=== PATIENT | female | born 1990 | race Caucasian/White ===

== ENCOUNTER 2019-01-16 15:45 | Inpatient (IN) | payer OTHER ==
[~2019-01-16] VITALS: Ht 160 cm; Wt 80.6 kg
[2019-01-16 16:11] VITALS: Ht 160 cm; Wt 80.6 kg
[2019-01-16 16:13] VITALS: BP 121/62; PULSE 90; RESP 20
[2019-01-16] MEDS ORDERED: CARBOPROST 250 MCG INJ IM PRN (16:30)
[2019-01-16] MEDS ORDERED: MISOPROSTOL 200 MCG TAB PR PRN (16:30)
[2019-01-16] MEDS ORDERED: LIDOCAINE 1% (MPF) 30 ML INJ INJ PRN (16:30)
[2019-01-16] MEDS ORDERED: OXYTOCIN 30 UNITS/LR 500 ML IV PRN (16:30)
[2019-01-16] MEDS ORDERED: METHYLERGONOVINE 0.2 MG INJ IM PRN (16:30)
[2019-01-16] MEDS ORDERED: OXYTOCIN 30 UNITS/LR 500 ML IV SCH ×2 (16:30)
[2019-01-16] MEDS ORDERED: LACTATED RINGER'S 1,000 ML IV PRN (16:46)
[2019-01-16] MEDS ORDERED: LACTATED RINGER'S 1,000 ML IV SCH (16:46)
[2019-01-16] MEDS ORDERED: AMPICILLIN 2 GM/NS (PMX) 100 ML ONE (16:53)
[2019-01-16] MEDS ORDERED: BUTORPHANOL 2 MG INJ IV PRN (17:00)
[2019-01-16] MEDS ORDERED: AMPICILLIN 2 GM/NS (PMX) 100 ML IV ONE (17:00)
[2019-01-16] MEDS ORDERED: IBUPROFEN 600 MG TAB PO PRN (17:00)
[2019-01-16] MEDS: MISOPROSTOL 50 MCG CAPSULE PO SCH ×2 (18:37→23:35)
[2019-01-16] MEDS ORDERED: AMPICILLIN 1 GM/NS (PMX) 50 ML IV SCH ×2 (20:30→21:00)
[2019-01-17] MEDS ORDERED: LIDOCAINE 1.5%/EPI MPF (SDV) 30 ML VIAL ONE
--- NOTE | 2019-01-17 00:14 | PREAC ---
Date/Time of Note Date/Time of Note DATE: 01/17/19 TIME: 00:13 Anesthesia Eval and Record Evaluation Time Pre-Procedure Interview DATE: 01/17/19 TIME: 00:13 Age 28 Sex female NPO: 8 hrs Preoperative diagnosis intrauterine Planned procedure labor epidural Past Medical History Past Medical History: Includes : : (5), Para: (4), Gestational age: (41+) Surgery & Anesthesia Issues No known issue Meds Anticoagulation: No Beta Sharona within 24 hr: No Reason Beta Sharona not given: Pt. not on B-Sharona Current Medications Lidocaine (Xylocaine 1% (Mpf)) 30 ml ONCE PRN INJ .EPISIOTOMY; Start 01/16/19 at 16:30 Oxytocin/Lactated Ringer's 500 ml @ 500 mls/hr ONCE POST IV ; Start 01/16/19 at 16:30 Oxytocin/Lactated Ringer's 500 ml @ 125 mls/hr POST IV ; Start 01/16/19 at 16:30 Oxytocin/Lactated Ringer's 500 ml @ 0 mls/hr ONCE PRN IV .VAGINAL BLEEDING; Start 01/16/19 at 16:30 Methylergonovine Maleate (Methergine) 0.2 mg ONCE PRN IM .VAGINAL BLEEDING; Start 01/16/19 at 16:30 Carboprost Tromethamine (Hemabate) 250 mcg ONCE PRN IM .VAGINAL BLEEDING; Start 01/16/19 at 16:30 Misoprostol (Cytotec) 1,000 mcg ONCE PRN UT .VAGINAL BLEEDING; Start 01/16/19 at 16:30 Lactated Ringer's 1,000 ml @ 125 mls/hr Q8H IV Last administered on 01/16/19at 17:00; Admin Dose 125 MLS/HR; Start 01/16/19 at 16:46 Butorphanol Tartrate (Stadol) 2 mg Q2H PRN IV .PAIN SCALE 6-10; Start 01/16/19 at 17:00 Lactated Ringer's 1,000 ml @ 2,000 mls/hr Q30M PRN IV .ANESTHESIA; Start 01/16/19 at 16:46 Ibuprofen (Motrin) 600 mg ONCE PRN PO .PAIN 1-5; Start 01/16/19 at 17:00 Misoprostol (Cytotec 50 Mcg Capsule) 50 mcg Q4H PO Last administered on 01/16/19at 23:35; Admin Dose 50 MCG; Start 01/16/19 at 18:30; Stop 01/17/19 at 14:31 Ampicillin 50 ml @ 100 mls/hr Q4H IV Last administered on 01/16/19at 21:11; Admin Dose 100 MLS/HR; Start 01/16/19 at 21:00 Meds reviewed: Yes Allergies Coded Allergies: No Known Allergy (Unverified , 01/16/19) Allergies Reviewed: Yes Labs/Studies Labs Reviewed: Reviewed by anesthesiologist Result Diagram: 01/16/19 1627 Laboratory Tests 01/16/19 16:27 Blood Bank Test 01/16/19 16:27 Antibody Screen NEGATIVE Blood Type O POSITIVE Rh Immune Globulin Candidate NO test: N/A Pre-procedure Exam Last vitals Vital Signs Date Temp Pulse Resp B/P (MAP) Pulse Ox O2 O2 Flow FiO2 Time Delivery Rate 01/16/19 98.2 90 20 121/62 97 Room Air 16:13 (81) Airway: Adequate mouth opening, Adequate thyromental dist Mallampati: Mallampati II Teeth: Normal Lung: Normal Heart: Normal ASA Physical Status ASA physical status: 2 Emergency: None Planned Anesthetic Neuraxial: Epidural Planned Pain Management Epidural, Parenteral pain med Pre-operative Attestations Prior to commencing anesthesia and surgery, the patient was re-evaluated, there was verification of: *The patient's identity *The results of appropriate recent lab work and preoperative vital signs *The above evaluation not changing prior to induction *Anesthetic plan, risk benefits, alternative and complications discussed with patient/family; questions answered; patient/family understands, accepts and wishes to proceed. NALDO MOTAT MD January 17, 2019 00:14
[2019-01-17] MEDS ORDERED: FENTAnyl 2MCG/ML-ROPIV 0.2% 0 ML ONE (00:16)
[2019-01-17] MEDS ORDERED: ONDANSETRON 4 MG INJ IV PRN (00:30)
[2019-01-17] MEDS ORDERED: DIPHENHYDRAMINE 50 MG INJ IV PRN (00:30)
[2019-01-17] MEDS ORDERED: FENTAnyl 2MCG/ML-ROPIV 0.2% 100 ML BAG EPI SCH (00:30)
[2019-01-17] MEDS ORDERED: NALOXONE (0.4 MG/ML) INJ IV PRN (00:30)
--- NOTE | 2019-01-17 00:53 | PAC ---
Date/Time of Note Date/Time of Note DATE: 01/17/19 TIME: 00:53 Post-Anesthesia Notes Post-Anesthesia Note Last documented vital signs Vital Signs Date Temp Pulse Resp B/P (MAP) Pulse Ox O2 O2 Flow FiO2 Time Delivery Rate 01/16/19 98.2 90 20 121/62 97 Room Air 16:13 (81) Activity: WNL Respiratory function: WNL Cardiovascular function: WNL Mental status: Baseline Pain reasonably controlled: Yes Hydration appropriate: Yes Nausea/Vomiting absent: Yes Comments BP: 138/64 HR: 82 RR: 15 T: 98 SaO2: 99% NALDO MOTTA MD January 17, 2019 00:53
--- NOTE | 2019-01-17 01:09 | HP ---
Date/Time of Note Date/Time of Note DATE: 01/17/19 TIME: 01:01 OB - History Hx of Present Free Text/Dictation 28y.o at 41w for IOL for postdate. Initial VE /-2 IOL by using cytotec GBS status positive admitted for IOL Chief Complaint: IOL Estimated Due Date: January 10, 2019 : 5 Para: 4 Spontaneous : 0 Therapeutic : 0 Care: Good Care Ultrasounds: Normal mid trimester US Obstetrical Complications: None Medical Complications: None Past Family/Social History * Past Medical, Surgical, Family and Obstetric Histories reviewed from chart. Blood Type: O+ Rubella: immune RPR/VDRL: Negative GBS Status: Positive HBsAG: Negative OB Admission Exam Vital Signs Vital Signs Vital Signs Date Temp Pulse Resp B/P (MAP) Pulse Ox O2 O2 Flow FiO2 Time Delivery Rate 01/16/19 98.2 90 20 121/62 97 Room Air 16:13 (81) Physical Exam HEENT: WNL Heart: Rhythm Normal Lungs: Clear, Equal Abdomen: WNL Extremities: Normal Reflexes: Normal Cervical Dilatation: 1cm Effacement: 50% Station: -2 Membranes: Intact Amniotic Fluid: Unevaluable Heart Rate: 130's Accelerations: Accelerations Present Decelerations: No Decelerations Varibility: Moderate Contractions on Admission: None Last 72 hours Lab Results CBC & BMP 01/16/19 16:27 OB Assessment/Plan Reason for admission: induction of labor Other Assessment: IUP 41w Plan: Induction, Other (ampicillin for GBS positive status) Induction Method: per Misoprostol Protocol RIYA ESCUDERO MD January 17, 2019 01:09
--- NOTE | 2019-01-17 01:16 | LDN ---
Date/Time of Note Date/Time of Note DATE: 01/17/19 TIME: 01:14 Delivery Summary of normal male inafant Weeks of Gestation 41w Placenta Delivered: Spontaneously, Intact & Complete Meconium: none Episiotomy: No Perineal laceration: 1 Laceration repair: 000ch gut Anesthesia type: Epidural Estimated blood loss: 200 Sponge & Needle done & correct: Yes All needle counts correct: Yes Any foreign bodies felt in the: No Infant Delivery Information Sex Sex: male Apgars 1 Minute: 9 5 Minute: 9 Suctioning Nose & mouth suctioned at rigo: Yes Delee suction performed: Yes Umbilical Cord Umbilical cord with: 3 Vessels Cord presentations: no nuchal cord Cord Blood was obtained: Yes Mother & Baby Disposition Disposition Mom & Baby to Maternity; Good: Yes Mom transferred to: Other Baby to NICU: No () RIYA ESCUDERO MD January 17, 2019 01:16
[2019-01-17 02:55] VITALS: BP 125/69; PULSE 85; RESP 18
[2019-01-17] MEDS ORDERED: OXYCODONE/ASPIRIN (4.88/325) TAB PO PRN ×2 (03:30)
[2019-01-17] MEDS ORDERED: ZOLPIDEM 5 MG TAB PO PRN (03:30)
[2019-01-17] MEDS ORDERED: OXYTOCIN 30 UNITS/LR 500 ML IV PRN (03:30)
[2019-01-17] MEDS ORDERED: MISOPROSTOL 200 MCG TAB PR PRN (03:30)
[2019-01-17] MEDS ORDERED: BENZOCAINE 20% 56 ML SPRAY TOP PRN (03:30)
[2019-01-17] MEDS ORDERED: METHYLERGONOVINE 0.2 MG INJ IM PRN (03:30)
[2019-01-17] MEDS ORDERED: LANOLIN HPA 1 PKT TOP PRN (03:30)
[2019-01-17] MEDS ORDERED: CARBOPROST 250 MCG INJ IM PRN (03:30)
[2019-01-17] MEDS ORDERED: WITCH HAZEL/GLYCERIN PAD PR PRN (03:30)
[2019-01-17 03:55] VITALS: BP 122/64; PULSE 80; RESP 19
[2019-01-17] MEDS: IBUPROFEN 600 MG TAB PO SCH ×3 (06:11→18:00)
[2019-01-17 08:00] VITALS: BP 120/58; PULSE 72; RESP 18
[2019-01-17] MEDS: SENNA/DOCUSATE NA (8.6MG/50MG) TAB PO SCH ×2 (09:18→21:11)
[2019-01-17 12:00] VITALS: BP 115/59; PULSE 87
[2019-01-17 16:00] VITALS: BP 119/63; PULSE 73; RESP 18
[2019-01-17 19:40] VITALS: BP 124/69; PULSE 80; RESP 18
[2019-01-18 03:25] VITALS: BP 106/56; PULSE 83; RESP 19
[2019-01-18] MEDS: IBUPROFEN 600 MG TAB PO SCH ×3 (06:00→12:23)
[2019-01-18 07:30] VITALS: BP 110/58; PULSE 87; RESP 18
--- NOTE | 2019-01-18 07:43 | DS ---
Date/Time of Note Date/Time of Note DATE: 01/18/19 TIME: 07:42 Obstetrical Discharge Record Final Diagnosis Final Diagnosis: Term delivered Vaginal Delivery Obstetrical Delivery: Spontaneous Complications Augmentation: Yes Induction: Yes Rupture of Membranes: No Condition on Discharge Physical Assessment Voiding: Yes Bowel Movement: Yes Breast: Soft, non-tender, Filling Fundus: Firm Abdomen and Incision: soft, not tender Calf Tenderness: No Patient Condition: Good BALTA SALDANA MD January 18, 2019 07:43
[2019-01-18] MEDS: SENNA/DOCUSATE NA (8.6MG/50MG) TAB PO SCH (09:00)
[2019-01-19] MEDS ORDERED: DIPHTH/TET/ACEL PERTUSS (ADULT) 0.5 ML VIAL IM* ONE (09:00)
--- NOTE | 2019-01-19 15:37 | DELSUM ---
Delivery Summary A-C Datetime Report Generated by N: 01/19/2019 15:37 DELIVERY PERSONNEL Headlight Adjuster: Sibley, Heather MATERNAL INFORMATION Delivery Anesthesia: Epidural Medications in Delivery: 30 UNITS OF PITOCIN Delivery QBL (ml): 200 Placenta Cultured: No Maternal Complications: None RN Comments: BREONNA LABOR SUMMARY EDC: 01/10/2019 00:00 (Annotations: Data stored by [facility] on behalf of user) No. Babies in Womb: 1 Attempted: No Labor Anesthesia: Epidural LABOR INFORMATION Reason for Induction: Not Applicable Onset of Labor: 01/16/2019 18:57 Complete Dilatation: 01/17/2019 00:34 Cervical Ripening Agents: Cytotec @ 50 Oxytocin: Induction Group B Beta Strep: Positive Antibiotics # of Doses: 2 Antibiotics Time of Last Dose: 01/16/2019 21:11 Steroids Given: None Reason Steroids Not Administered: Not Applicable MEMBRANES Membranes Rupture Method: Spontaneous Rupture of Membranes: 01/16/2019 23:45 Length of Rupture (hr): 0.85 Amniotic Fluid Color: Clear Amniotic Fluid Amount: Moderate Amniotic Fluid Odor: None STAGES OF LABOR Stage 1 hr: 5 Stage 1 min: 37 Stage 2 hr: 0 Stage 2 min: 2 Stage 3 hr: 0 Stage 3 min: 4 Total Time in Labor hr: 5 Total Time in Labor min: 43 VAGINAL DELIVERY Episiotomy: None Laceration Extension: First Degree Laceration Type: Perineal Laceration Repair: Yes Initial Vag Sponge Count: 10 Final Vag Sponge Count: 10 Initial Vag Sharps Count: 2 Final Vag Sharps Count: 2 Sponge Count Correct: Yes; Vaginal Sweep Performed Sharps Count Correct: Yes BABY A INFORMATION Infant Delivery Date/Time: 01/17/2019 00:36 Method of Delivery: Vaginal Born in Route : No : N/A Forceps: N/A Vacuum Extraction: N/A Shoulder Dystocia : N/A SHOULDER DYSTOCIA BABY A Infant Delivery Date/Time: 01/17/2019 00:36 PRESENTATION/POSITION BABY A Presentation: Cephalic Cephalic Presentation: Vertex Vertex Position: Left Occipital Anterior Breech Presentation: N/A PLACENTA INFORMATION BABY A Placenta Delivery Time : 01/17/2019 00:40 (Annotations: Data stored by [facility] on behalf of user) Placenta Method of Delivery: Spontaneous Placenta Status: Delivered SCORES BABY A Heart Rate 1 min: >100 bpm Resp Effort 1 min: Good Cry Reflex Irritability 1 min: Cough/Sneeze/Pulls Away Muscle Tone 1 min: Active Motion Color 1 min: Body [place], Extremit Blue Resuscitation Effort 1 min: Tactile Stimulation SCORE 1 MIN: 9 Heart Rate 5 min: >100 bpm Resp Effort 5 min: Good Cry Reflex Irritability 5 min: Cough/Sneeze/Pulls Away Muscle Tone 5 min: Active Motion Color 5 min: Body [place], Extremit Blue Resuscitation Effort 5 min: Tactile Stimulation SCORE 5 MIN: 9 INFORMATION BABY A Gestational Age at Delivery: 41.0 Gestational Status: Late Term- 41- 41.6 Weeks Infant Outcome : Liveborn Infant Condition : Stable Infant Sex: Male IDENTIFICATION/MEDS BABY A ID Band Location: Right Leg; Left Arm Sensor Applied: Yes Sensor Location : Cord Clamp Vitamin K Given : Aquamephyton 1 mg IM Erythromycin Given: Given Both Eyes WEIGHT/LENGTH BABY A Birthweight (gm): 3855 Infant Weight (lb): 8 Infant Weight (oz): 8 Length (in): 19.50 Length (cm): 49.53 CORD INFORMATION BABY A No. Cord Vessels: 3 Nuchal Cord : N/A Cord Blood Taken: Yes Suction: Mouth; Nose ASSESSMENT BABY A Complications: None Physical Findings at Delivery: Bruising; Within Normal Limits Physical Findings- Other: FACIAL BRUISING NOTED Respirations: Appears Normal [place] Off/ALS Called : No Infant Care By: GLENROY IGNACIO Transferred To: Remains with Mother
== END 2019-01-18 15:36 | disposition home or self-care (01) | DRG 807 ==
LOC: L-D 15:45 → PP1 01-17 02:52
PROVIDERS: ADMIT Specialist; ATTEND Specialist
PROC: 3E0P7GC Introduction of Other Therapeutic Substance into Female Reproductive, Via Natural or Artificial Opening (ICD-10-PCS; 2019-01-16)
PROC: 4A1HXCZ Monitoring of Products of Conception, Cardiac Rate, External Approach (ICD-10-PCS; 2019-01-16)
PROC: 10E0XZZ Delivery of Products of Conception, External Approach (ICD-10-PCS; principal; 2019-01-17)
PROC: 0HQ9XZZ Repair Perineum Skin, External Approach (ICD-10-PCS; 2019-01-17)
DX: O48.0 Post-term pregnancy (principal); Z37.0 Single live birth; Z3A.41 41 weeks gestation of pregnancy; O99.824 Streptococcus B carrier state complicating childbirth; O70.0 First degree perineal laceration during delivery
CPT/HCPCS: 62322; 76815; 85025; 85610; 85730; 86592; 86850; 86900; 86901; 87340; J0290; J2590; J3010; J7120